=== PATIENT | female | born 1980 | race Hispanic/Latino ===

== ENCOUNTER 2019-05-11 00:14 | Inpatient (IN) | payer MEDICARE ==
[2019-05-11] MEDS ORDERED: ZIPRASIDONE MESYLATE 20 MG VIAL IM ONE ×2 (00:33→00:37)
[2019-05-11] MEDS ORDERED: LORazepam 2 MG/ML VIAL ONE (00:35)
[2019-05-11] MEDS ORDERED: LORazepam 2 MG/ML VIAL IV ONE (00:37)
[2019-05-11] MEDS ORDERED: THIAMINE 100 MG, FOLIC ACID 1 MG, MULTIPLE VITAMIN INJ, ADULT 10 ML in SODIUM CHLORIDE ... IV ONE (00:41)
[2019-05-11] MEDS ORDERED: TETANUS,DIPH,PERTUSS(ACELL) VACCINE 0.5 ML SYRINGE IM ONE (01:08)
[2019-05-11 01:10] LABS: INR 1.16 (0.87-1.13)
--- NOTE | 2019-05-11 01:10 | Emergency Department Report ---
ED Psych HPI - General Chief Complaint: Fall Stated Complaint: FALL/COMBATIVE Time Seen by Provider: 05/11/19 00:36 Source: patient (unable to proved hx), RN/MD (Andres notes reviwed), EMS Mode of arrival: Stretcher Limitations: Altered Mental Status - History of Present Illness Initial Comments: 39-year-old female with a past medical history of mood disorder, psychosis, diabetes, hypothyroidism, etoh dependance, presents from [facility] with [facility] with acute psychosis, hallucinations, agitation, and combative behavior. As per patient's paperwork patient has a 1013 signed on May 08 for hallucinations and acute psychosis. Labs obtained from May 08 (performed at [facility]) included with transport paperwork revealed a negative urine test and patient had an alcohol level of 70. CIWA protocol was started on May 09 and patient received Tranxene 15 mg 4 times today with last dose at 9 PM. Patient fell at [facility] fall was unwithness and presents with lac to posterior scalp. Tetanus status unknown. Patient was combative with staff at [facility] and received IM Haldol 5 mg , Ativan 2 mg IM, and Benadryl 50 mg IM at 9pm. Patient presents to the ER psychotic, rambling and will not answer questions, hallucinating, and requiring multiple providers to provide physical restraints. Geodon 20mg IM an Ativan 1 mg IV ordered. Behavior health sitter showed me a text from Andres nurse stating pt's mom reports no previous hx of psychosis. Pt has had a ciwa score of 16 at 9:41 am and 21:00 05/09 as per Andres chart. at 4:15 am I spoke to Andres RN. he states pt did have some mild intermitten t psychosis upon intake yesterday however, her symptoms worsened throughout the day and were uncontrolled with meds. He also states that patient has some chronic bladder issues and self caths twice a day. He also states that patient's fall was unwitnessed. They were unclear if patient fell or had a seizure. RN was informed that pt was going to be admitted. They say they are willing to accept her back once her condition improves. - Related Data Home Medications Medication Instructions Recorded Confirmed Last Taken ALPRAZolam [Xanax TAB] 1 tab PO PRN PRN 01/26/14 01/27/1414 08:00 Aspirin/Caffeine [Bc Arthritis 1 pack PO PRN PRN 01/26/14 01/26/14 01/25/14 Powder Packet] Dextroamphetamine/Amphetamine 1 tab PO BID 01/26/14 01/27/14 01/27/14 07:00 [Adderall] Levothyroxine [Synthroid] 1 tab PO DAILY 01/26/14 01/27/14 01/27/14 06:00 Lovastatin [Altoprev] 20 mg PO DAILY 01/26/14 01/27/14 01/25/14 08:00 Methadone HCl 1 tab PO 4XD PRN 01/26/14 01/27/14 01/27/14 08:00 Oxycodone HCl/Acetaminophen 1 tab PO PRN PRN 01/26/14 01/27/14 01/27/14 06:00 [Oxycodone-Acetaminophen 10-325] Allergies Allergy/AdvReac Type Severity Reaction Status Date / Time promethazine [From Phenergan] Allergy Unknown Verified 05/11/19 01:26 ED Review of Systems ROS: Stated complaint: FALL/COMBATIVE Other details as noted in HPI Comment: Unobtainable due to pts medical conditions ED Past Medical Hx - Past Medical History Previous Medical History?: Yes Hx Hypertension: Yes Hx Diabetes: Yes Hx GERD: Yes (MILD) Hx Liver Disease: Yes (fatty liver) Hx Asthma: Yes (CHILDHOOD ONLY/SEASONAL) Additional medical history: Drug abuse, hypothyroidism - Surgical History Past Surgical History?: Yes Hx Appendectomy: Yes Additional Surgical History: Tonsillectomy, T10-T11 fusion, C3 neck fusion - Social History Smoking Status: Unknown if ever smoked Substance Use Type: Alcohol, Other - Medications Home Medications: Home Medications Medication Instructions Recorded Confirmed Last Taken Type ALPRAZolam [Xanax TAB] 1 tab PO PRN PRN 01/26/14 01/27/14 01/26/14 08:00 History Aspirin/Caffeine [Bc Arthritis 1 pack PO PRN PRN 01/26/14 01/26/14 01/25/14 History Powder Packet] Dextroamphetamine/Amphetamine 1 tab PO BID 01/26/14 01/27/14 01/27/14 07:00 History [Adderall] Levothyroxine [Synthroid] 1 tab PO DAILY 01/26/14 01/27/14 01/27/14 06:00 History Lovastatin [Altoprev] 20 mg PO DAILY 01/26/14 01/27/14 01/25/14 08:00 History Methadone HCl 1 tab PO 4XD PRN 01/26/14 01/27/14 01/27/14 08:00 History Oxycodone HCl/Acetaminophen 1 tab PO PRN PRN 01/26/14 01/27/14 01/27/14 06:00 History [Oxycodone-Acetaminophen 10-325] ED Physical Exam - General Limitations: Other - Other Other exam information: General: Distress, combative Head: 2 cm laceration to posterior scalp Eyes: normal appearance ENT: Moist mucous membranes Neck: Normal appearance, no midline tenderness Chest: Clear to auscultation bilaterally CV: tachycardic regular rhythm Abdomen: Soft, normal bowel sounds, nontender, nondistended, no rebound or guarding Back: Normal inspection Extremity: Normal inspection, full range of motion Neuro: Alert but not answering any direct questions or following commands, speech clear, no facial asymmetry, 5/5 upper and lower extremity strength, sensation grossly intact Psych: Altered, combative, psychotic, delusional Skin: No rash ED Course Vital Signs 05/11/19 05/11/19 05/11/19 00:20 00:30 00:46 Temperature Pulse Rate 131 H 114 H Respiratory 22 20 Rate Blood Pressure 132/107 O2 Sat by Pulse 79 L 96 Oximetry 05/11/19 05/11/19 05/11/19 01:00 01:16 01:30 Temperature Pulse Rate 110 H 104 H 99 H Respiratory 22 22 18 Rate Blood Pressure 111/64 111/64 106/60 O2 Sat by Pulse 96 97 99 Oximetry 05/11/19 05/11/19 05/11/19 01:46 02:00 02:16 Temperature 98.1 F Pulse Rate 98 H 96 H 94 H Respiratory 20 20 17 Rate Blood Pressure 99/60 115/81 115/81 O2 Sat by Pulse 100 99 100 Oximetry 05/11/19 05/11/19 05/11/19 03:18 03:30 04:00 Temperature Pulse Rate 95 H 95 H 94 H Respiratory 19 17 22 Rate Blood Pressure 100/72 O2 Sat by Pulse 96 96 97 Oximetry - Reevaluation(s) Reevaluation #1: 05/11/19 03:09 sat remained >95% during ed stay, pulse ox of 79 is an error 05/11/19 03:12 tachycardia improved with sedation (geodon and iv ativan) - Laceration /Wound Repair Head Wound Location: head (Posterior scalp) Wound Length (cm): 2 Wound's Depth, Shape: linear Irrigated w/ Saline (ccs): 50 Betadine Prep?: Yes Number of Sutures: 3 ([place]) Layer Closure?: No ED Medical Decision Making - Lab Data Result diagrams: 05/11/19 01:02 05/11/19 01:02 Lab Results 05/11/19 05/11/19 05/11/19 Range/Units 00:44 01:02 01:02 WBC 6.4 (4.5-11.0) K/mm3 RBC 3.43 L (3.65-5.03) M/mm3 Hgb 10.5 (10.1-14.3) gm/dl Hct 31.1 (30.3-42.9) % MCV 91 (79-97) fl MCH 31 (28-32) pg MCHC 34 (30-34) % RDW 19.2 H (13.2-15.2) % Plt Count 181 (140-440) K/mm3 Lymph % (Auto) 8.0 L (13.4-35.0) % [place] % (Auto) 6.3 (0.0-7.3) % Eos % (Auto) 0.3 (0.0-4.3) % Baso % (Auto) 0.4 (0.0-1.8) % Lymph # 0.5 L (1.2-5.4) K/mm3 [place] # 0.4 (0.0-0.8) K/mm3 Eos # 0.0 (0.0-0.4) K/mm3 Baso # 0.0 (0.0-0.1) K/mm3 Seg Neutrophils % 85.0 H (40.0-70.0) % Seg Neutrophils # 5.4 (1.8-7.7) K/mm3 PT 15.0 H (12.2-14.9) Sec. INR 1.16 H (0.87-1.13) APTT 31.0 (24.2-36.6) Sec. Sodium 135 L (137-145) mmol/L Potassium 3.4 L (3.6-5.0) mmol/L Chloride 98.4 (98-107) mmol/L Carbon Dioxide 25 (22-30) mmol/L Anion Gap 15 mmol/L BUN 11 (7-17) mg/dL Creatinine 0.6 L (0.7-1.2) mg/dL Estimated GFR > 60 ml/min BUN/Creatinine Ratio 18 % Glucose 145 H (65-100) mg/dL POC Glucose (70-105) Calcium 8.5 (8.4-10.2) mg/dL Magnesium (1.7-2.3) mg/dL Total Bilirubin 0.70 (0.1-1.2) mg/dL AST 34 (5-40) units/L ALT 18 (7-56) units/L Alkaline Phosphatase 51 (35-129) units/L Total Creatine Kinase 629 H (30-135) units/L Total Protein 6.1 L (6.3-8.2) g/dL Albumin 3.6 L (3.9-5) g/dL Albumin/Globulin Ratio 1.4 % TSH (0.270-4.200) mlU/mL Free T4 (0.76-1.46) ng/dL HCG, Qual (Negative) Urine Color (Yellow) Urine Turbidity (Clear) Urine pH (5.0-7.0) Ur Specific [place] (1.003-1.030) Urine Protein (Negative) mg/dL Urine Glucose (UA) (Negative) mg/dL Urine Ketones (Negative) mg/dL Urine Blood (Negative) Urine Nitrite (Negative) Urine Bilirubin (Negative) Urine Urobilinogen (<2.0) mg/dL Ur Leukocyte Esterase (Negative) Urine WBC (Auto) (0.0-6.0) /HPF Urine RBC (Auto) (0.0-6.0) /HPF U Epithel Cells (Auto) (0-13.0) /HPF Urine Mucus /HPF Salicylates (2.8-20.0) mg/dL Urine Opiates Screen Urine Methadone Screen Acetaminophen (10.0-30.0) ug/mL Ur Barbiturates Screen Ur Phencyclidine Scrn Ur Amphetamines Screen U Benzodiazepines Scrn Urine Cocaine Screen U Marijuana (THC) Screen Drugs of Abuse Note Plasma/Serum Alcohol (0-0.07) % 05/11/19 05/11/19 05/11/19 Range/Units 01:02 01:02 01:02 WBC (4.5-11.0) K/mm3 RBC (3.65-5.03) M/mm3 Hgb (10.1-14.3) gm/dl Hct (30.3-42.9) % MCV (79-97) fl MCH (28-32) pg MCHC (30-34) % RDW (13.2-15.2) % Plt Count (140-440) K/mm3 Lymph % (Auto) (13.4-35.0) % [place] % (Auto) (0.0-7.3) % Eos % (Auto) (0.0-4.3) % Baso % (Auto) (0.0-1.8) % Lymph # (1.2-5.4) K/mm3 [place] # (0.0-0.8) K/mm3 Eos # (0.0-0.4) K/mm3 Baso # (0.0-0.1) K/mm3 Seg Neutrophils % (40.0-70.0) % Seg Neutrophils # (1.8-7.7) K/mm3 PT (12.2-14.9) Sec. INR (0.87-1.13) APTT (24.2-36.6) Sec. Sodium (137-145) mmol/L Potassium (3.6-5.0) mmol/L Chloride (98-107) mmol/L Carbon Dioxide (22-30) mmol/L Anion Gap mmol/L BUN (7-17) mg/dL Creatinine (0.7-1.2) mg/dL Estimated GFR ml/min BUN/Creatinine Ratio % Glucose (65-100) mg/dL POC Glucose (70-105) Calcium (8.4-10.2) mg/dL Magnesium (1.7-2.3) mg/dL Total Bilirubin (0.1-1.2) mg/dL AST (5-40) units/L ALT (7-56) units/L Alkaline Phosphatase (35-129) units/L Total Creatine Kinase (30-135) units/L Total Protein (6.3-8.2) g/dL Albumin (3.9-5) g/dL Albumin/Globulin Ratio % TSH (0.270-4.200) mlU/mL Free T4 (0.76-1.46) ng/dL HCG, Qual (Negative) Urine Color (Yellow) Urine Turbidity (Clear) Urine pH (5.0-7.0) Ur Specific [place] (1.003-1.030) Urine Protein (Negative) mg/dL Urine Glucose (UA) (Negative) mg/dL Urine Ketones (Negative) mg/dL Urine Blood (Negative) Urine Nitrite (Negative) Urine Bilirubin (Negative) Urine Urobilinogen (<2.0) mg/dL Ur Leukocyte Esterase (Negative) Urine WBC (Auto) (0.0-6.0) /HPF Urine RBC (Auto) (0.0-6.0) /HPF U Epithel Cells (Auto) (0-13.0) /HPF Urine Mucus /HPF Salicylates < 0.3 L (2.8-20.0) mg/dL Urine Opiates Screen Urine Methadone Screen Acetaminophen < 5.0 L (10.0-30.0) ug/mL Ur Barbiturates Screen Ur Phencyclidine Scrn Ur Amphetamines Screen U Benzodiazepines Scrn Urine Cocaine Screen U Marijuana (THC) Screen Drugs of Abuse Note Plasma/Serum Alcohol < 0.01 (0-0.07) % 05/11/19 05/11/19 05/11/19 Range/Units 01:02 01:02 01:08 WBC (4.5-11.0) K/mm3 RBC (3.65-5.03) M/mm3 Hgb (10.1-14.3) gm/dl Hct (30.3-42.9) % MCV (79-97) fl MCH (28-32) pg MCHC (30-34) % RDW (13.2-15.2) % Plt Count (140-440) K/mm3 Lymph % (Auto) (13.4-35.0) % [place] % (Auto) (0.0-7.3) % Eos % (Auto) (0.0-4.3) % Baso % (Auto) (0.0-1.8) % Lymph # (1.2-5.4) K/mm3 [place] # (0.0-0.8) K/mm3 Eos # (0.0-0.4) K/mm3 Baso # (0.0-0.1) K/mm3 Seg Neutrophils % (40.0-70.0) % Seg Neutrophils # (1.8-7.7) K/mm3 PT (12.2-14.9) Sec. INR (0.87-1.13) APTT (24.2-36.6) Sec. Sodium (137-145) mmol/L Potassium (3.6-5.0) mmol/L Chloride (98-107) mmol/L Carbon Dioxide (22-30) mmol/L Anion Gap mmol/L BUN (7-17) mg/dL Creatinine (0.7-1.2) mg/dL Estimated GFR ml/min BUN/Creatinine Ratio % Glucose (65-100) mg/dL POC Glucose (70-105) Calcium (8.4-10.2) mg/dL Magnesium 1.20 L (1.7-2.3) mg/dL Total Bilirubin (0.1-1.2) mg/dL AST (5-40) units/L ALT (7-56) units/L Alkaline Phosphatase (35-129) units/L Total Creatine Kinase (30-135) units/L Total Protein (6.3-8.2) g/dL Albumin (3.9-5) g/dL Albumin/Globulin Ratio % TSH (0.270-4.200) mlU/mL Free T4 (0.76-1.46) ng/dL HCG, Qual Negative (Negative) Urine Color [place] (Yellow) Urine Turbidity Clear (Clear) Urine pH 6.0 (5.0-7.0) Ur Specific [place] 1.029 (1.003-1.030) Urine Protein 30 mg/dl (Negative) mg/dL Urine Glucose (UA) Neg (Negative) mg/dL Urine Ketones Tr (Negative) mg/dL Urine Blood Neg (Negative) Urine Nitrite Neg (Negative) Urine Bilirubin Neg (Negative) Urine Urobilinogen 2.0 (<2.0) mg/dL Ur Leukocyte Esterase Tr (Negative) Urine WBC (Auto) 2.0 (0.0-6.0) /HPF Urine RBC (Auto) 5.0 (0.0-6.0) /HPF U Epithel Cells (Auto) 1.0 (0-13.0) /HPF Urine Mucus 2+ /HPF Salicylates (2.8-20.0) mg/dL Urine Opiates Screen Urine Methadone Screen Acetaminophen (10.0-30.0) ug/mL Ur Barbiturates Screen Ur Phencyclidine Scrn Ur Amphetamines Screen U Benzodiazepines Scrn Urine Cocaine Screen U Marijuana (THC) Screen Drugs of Abuse Note Plasma/Serum Alcohol (0-0.07) % 05/11/19 05/11/19 05/11/19 Range/Units 01:08 01:39 Unknown WBC (4.5-11.0) K/mm3 RBC (3.65-5.03) M/mm3 Hgb (10.1-14.3) gm/dl Hct (30.3-42.9) % MCV (79-97) fl MCH (28-32) pg MCHC (30-34) % RDW (13.2-15.2) % Plt Count (140-440) K/mm3 Lymph % (Auto) (13.4-35.0) % [place] % (Auto) (0.0-7.3) % Eos % (Auto) (0.0-4.3) % Baso % (Auto) (0.0-1.8) % Lymph # (1.2-5.4) K/mm3 [place] # (0.0-0.8) K/mm3 Eos # (0.0-0.4) K/mm3 Baso # (0.0-0.1) K/mm3 Seg Neutrophils % (40.0-70.0) % Seg Neutrophils # (1.8-7.7) K/mm3 PT (12.2-14.9) Sec. INR (0.87-1.13) APTT (24.2-36.6) Sec. Sodium (137-145) mmol/L Potassium (3.6-5.0) mmol/L Chloride (98-107) mmol/L Carbon Dioxide (22-30) mmol/L Anion Gap mmol/L BUN (7-17) mg/dL Creatinine (0.7-1.2) mg/dL Estimated GFR ml/min BUN/Creatinine Ratio % Glucose (65-100) mg/dL POC Glucose 142 H (70-105) Calcium (8.4-10.2) mg/dL Magnesium (1.7-2.3) mg/dL Total Bilirubin (0.1-1.2) mg/dL AST (5-40) units/L ALT (7-56) units/L Alkaline Phosphatase (35-129) units/L Total Creatine Kinase (30-135) units/L Total Protein (6.3-8.2) g/dL Albumin (3.9-5) g/dL Albumin/Globulin Ratio % TSH 7.120 H (0.270-4.200) mlU/mL Free T4 1.24 (0.76-1.46) ng/dL HCG, Qual (Negative) Urine Color (Yellow) Urine Turbidity (Clear) Urine pH (5.0-7.0) Ur Specific [place] (1.003-1.030) Urine Protein (Negative) mg/dL Urine Glucose (UA) (Negative) mg/dL Urine Ketones (Negative) mg/dL Urine Blood (Negative) Urine Nitrite (Negative) Urine Bilirubin (Negative) Urine Urobilinogen (<2.0) mg/dL Ur Leukocyte Esterase (Negative) Urine WBC (Auto) (0.0-6.0) /HPF Urine RBC (Auto) (0.0-6.0) /HPF U Epithel Cells (Auto) (0-13.0) /HPF Urine Mucus /HPF Salicylates (2.8-20.0) mg/dL Urine Opiates Screen Presumptive negative Urine Methadone Screen Presumptive negative Acetaminophen (10.0-30.0) ug/mL Ur Barbiturates Screen Presumptive negative Ur Phencyclidine Scrn Presumptive negative Ur Amphetamines Screen Presumptive positive U Benzodiazepines Scrn Presumptive positive Urine Cocaine Screen Presumptive negative U Marijuana (THC) Screen Presumptive positive Drugs of Abuse Note Disclamer Plasma/Serum Alcohol (0-0.07) % - Radiology Data Radiology results: report reviewed CT HEAD/BRAIN WO CON INDICATION / CLINICAL INFORMATION: Pt had a fall with head injury, posterior laceration, Psychosis!!. TECHNIQUE: All CT scans at this location are performed using CT dose reduction for ALARA by means of automated exposure control. COMPARISON: None available. FINDINGS: The study is suboptimal due to motion artifact. There is a right posterior frontal scalp laceration. The ventricular system is normal in size and configuration. No focal lesion or mass effect is seen. There is no evidence of intracranial hemorrhage or major vessel occlusion. The calvarium is intact. The visualized paranasal sinuses and mastoid air cells are near. IMPRESSION: No acute intracranial abnormality. CT CERVICAL SPINE WO CON INDICATION / CLINICAL INFORMATION: Pt had a fall with neck injury, Psychosis!!. TECHNIQUE: All CT scans at this location are performed using CT dose reduction for ALARA by means of automated exposure control. COMPARISON: None available. FINDINGS: There are surgical changes involving the posterior elements of C1 and C2. A metallic screw traverses the right lateral mass of C2. There is an os odontoideum. Mild degenerative disc disease is present at C5-C6. The prevertebral soft tissues are normal. There is no evidence of acute fracture or subluxation. I see no evidence of a focal disc herniation or epidural hematoma. There is mild scarring in both lung apices. IMPRESSION: Surgical and developmental changes at C1 and C2. No acute abnormality. - Medical Decision Making UDS + for amphetamines benzos and marijuana. pt receiving benzos at [facility]. I do not seen any adhd meds listed on APR therefore amphatmine abuse is likely as well. Pt sedated and resting after geodon 20mg IM and ativan 1 mg IV IV Mag and IV potassium ordered to correct mild electrolyte imbalances. Banana bag provided ct head/c spine without acute findings. pt's scalp lac was repaired with yvrose. tetanus provided As per RN from [facility] mother stated patient does not have history of psychosis. I suspect that patient is having alcohol withdrawal delirium. Psychosis may also be amphetamine induced as well however psychosis has worsened throughout the day and patient has not had had any known access to amphetamines while at [facility]. She has failed inpatient [facility] treatment with oral benzos and rescue antipsychotic and IM benzos and required ED stabilization. C ase was discussed with hospitalist who has agreed to admit patient for alcohol withdrawal delirium/psychosis. Patient is sedated at time of disposition. New 1013 form signed. [facility] protocol ordered [place] ordered since pt typically self caths due to chronic bladder issue and she is currently sedated - Differential Diagnosis drug abuse, new onset psychosis, etoh withdrawal delerium Critical Care Time: No Critical care attestation.: If time is entered above; I have spent that time in minutes in the direct care of this critically ill patient, excluding procedure time. ED Disposition Clinical Impression: Psychosis, Alcohol dependence, Alcohol withdrawal delirium, Occipital scalp laceration, Medical clearance for psychiatric admission, Hypomagnesemia, Hypokalemia, Amphetamine abuse, Chronic retention of urine, Diabetes Disposition: [id number] OP ADMIT IP TO THIS HOSP Is pt being admited?: Yes Condition: Stable Additional Instructions: Yvrose to scalp should be removed in 7 to 10 days. Time of Disposition: 04:23 (Dr Lovell/hospitalist)
[2019-05-11 01:13] LABS: Basophils % (Auto) 0.4 % (0.0-1.8); Eosinophils % (Auto) 0.3 % (0.0-4.3); Hematocrit 31.1 % (30.3-42.9); Hemoglobin 10.5 gm/dl (10.1-14.3); Lymphocytes # (Auto) 0.5 K/mm3 (1.2-5.4); Mean Corpuscular HGB Conc 34 % (30-34); Mean Corpuscular Volume 91 fl (79-97); Monocytes # (Auto) 0.4 K/mm3 (0.0-0.8); Monocytes % (Auto) 6.3 % (0.0-7.3); Platelet Count 181 K/mm3 (140-440); Red Blood Count 3.43 M/mm3 (3.65-5.03); Red Cell Distribution Width 19.2 % (13.2-15.2)
[2019-05-11 01:35] LABS: Bilirubin,Urine NEG (Negative); Blood,Urine NEG (Negative); Color,Urine Amber (Yellow); Mucus,Urine 2+ /HPF
[2019-05-11 01:37] LABS: Alanine Aminotransferase 18 units/L (7-56); Albumin 3.6 g/dL (3.9-5); BUN/Creatinine Ratio 18; Blood Urea Nitrogen 11 mg/dL (7-17); Calcium 8.5 mg/dL (8.4-10.2); Hemolysis Index 17
[2019-05-11] MEDS ORDERED: MAGNESIUM SULFATE 1 GM in SODIUM CHLORIDE 0.9% 50 ML IV ONE (01:38)
[2019-05-11 01:39] LABS: Cocaine Screen,Urine PRESUMPTIVE NEGATIVE; Methadone Screen,Urine PRESUMPTIVE NEGATIVE; Opiate Screen,Urine PRESUMPTIVE NEGATIVE
[2019-05-11 01:54] LABS: Free T4 (Free Thyroxine) 1.24 ng/dL (0.76-1.46)
[2019-05-11 02:12] LABS: Amphetamine Screen,Urine PRESUMPTIVE POSITIVE; Benzodiazepines Screen,Urine PRESUMPTIVE POSITIVE; Cannabinoid Screen,Urine PRESUMPTIVE POSITIVE
[2019-05-11] MEDS ORDERED: LORazepam 2 MG/ML VIAL IV PRN ×3 (03:10)
--- NOTE | 2019-05-11 03:15 | Cat Scan Report ---
CT HEAD/BRAIN WO CON INDICATION / CLINICAL INFORMATION: Pt had a fall with head injury, posterior laceration, Psychosis!!. TECHNIQUE: All CT scans at this location are performed using CT dose reduction for ALARA by means of automated e xposure control. COMPARISON: None available. FINDINGS: The study is suboptimal due to motion artifact. There is a right posterior frontal scalp laceration. The ventricular system is normal in size and configuration. No focal lesion or mass effect is seen. T here is no evidence of intracranial hemorrhage or major vessel occlusion. The calvarium is intact. The visualized paranasal sinuses and mastoid air cells are near. IMPRESSION: No acute intracranial abnormality. Signer Name: Aly Obregon MD Signed: 05/11/2019 3:11 AM Workstation Name: [id number]
--- NOTE | 2019-05-11 03:19 | Cat Scan Report ---
CT CERVICAL SPINE WO CON INDICATION / CLINICAL INFORMATION: Pt had a fall with neck injury, Psychosis!!. TECHNIQUE: All CT scans at this location are performed using CT dose reduction for ALARA by means of automated e xposure control. COMPARISON: None available. FINDINGS: There are surgical changes involving the posterior elements of C1 and C2. A metallic screw traverses the right lateral mass of C2. There is an os odontoideum. Mild degenerative disc disease is present a t C5-C6. The prevertebral soft tissues are normal. There is no evidence of acute fracture or subluxation. I se e no evidence of a focal disc herniation or epidural hematoma. There is mild scarring in both lung ap ices. IMPRESSION: Surgical and developmental changes at C1 and C2. No acute abnormality. Signer Name: Aly Obregon MD Signed: 05/11/2019 3:15 AM Workstation Name: [id number]
[2019-05-11] MEDS: POTASSIUM CHLORIDE 10 MEQ 10 MEQ/100 ML BAG IV SCH ×2 (05:10→05:11)
[2019-05-11] MEDS ORDERED: ACETAMINOPHEN 325 MG TAB PO PRN (06:01)
[2019-05-11] MEDS ORDERED: ONDANSETRON 4 MG/2 ML INJ IV PRN (06:01)
--- NOTE | 2019-05-11 06:05 | History and Physical Report ---
History of Present Illness History of present illness: 39-year-old woman with a history of diabetes, hypothyroidism, alcohol abuse, mood disorder was sent over from [place] for evaluation. Patient is status post fall at [place] with laceration at the back of her head, and she was sent here for further evaluation, in the ER she has been very combative in the emergency room, she was given Geodon 20, Ativan 1 mg, patient is now sedated. She also was combative overnight rewards and was also given sedatives. She was evaluated [facility] on May 08 for psychosis, alcohol level was 70. Patient will be admitted for alcohol delirium tremors PAST MEDICAL HISTORY: diabetes, hypothyroidism, alcohol abuse, mood disorder PAST SURGICAL HISTORY: Tonsil, neck, appendectomy SOCIAL HISTORY: + alcohol, unknown tobacco, drugs FAMILY HISTORY: Unknown Medications and Allergies Allergies Allergy/AdvReac Type Severity Reaction Status Date / Time promethazine [From Phenergan] Allergy Unknown Verified 05/11/19 01:26 Home Medications Medication Instructions Recorded Confirmed Last Taken Type ALPRAZolam [Xanax TAB] 1 tab PO PRN PRN 01/26/14 01/27/14 01/26/14 08:00 History Aspirin/Caffeine [Bc Arthritis 1 pack PO PRN PRN 01/26/14 01/26/14 01/25/14 History Powder Packet] Dextroamphetamine/Amphetamine 1 tab PO BID 01/26/14 01/27/14 01/27/14 07:00 History [Adderall] Levothyroxine [Synthroid] 1 tab PO DAILY 01/26/14 01/27/14 01/27/14 06:00 History Lovastatin [Altoprev] 20 mg PO DAILY 01/26/14 01/27/14 01/25/14 08:00 History Methadone HCl 1 tab PO 4XD PRN 01/26/14 01/27/14 01/27/14 08:00 History Oxycodone HCl/Acetaminophen 1 tab PO PRN PRN 01/26/14 01/27/14 01/27/14 06:00 History [Oxycodone-Acetaminophen 10-325] Active Meds: Active Medications Acetaminophen (Tylenol) 650 mg PO Q4H PRN PRN Reason: Pain MILD(1-3)/Fever >100.5/VALENTINO Dextrose/Sodium Chloride (D5/0.45ns) 1,000 mls @ 75 mls/hr IV DIRECT PRASHANTH Lorazepam (Ativan) 2 mg IV Q1HR PRN PRN Reason: CIWA-Ar 8-15 Lorazepam (Ativan) 4 mg IV Q1HR PRN PRN Reason: CIWA-Ar 16-25 Lorazepam (Ativan) 4 mg IV Q15MIN PRN PRN Reason: CIWA-Ar >25 Ondansetron HCl (Zofran) 4 mg IV Q8H PRN PRN Reason: Nausea And Vomiting Sodium Chloride (Sodium Chloride Flush Syringe 10 Ml) 10 ml IV BID PRASHANTH Sodium Chloride (Sodium Chloride Flush Syringe 10 Ml) 10 ml IV PRN PRN PRN Reason: LINE FLUSH Exam - Physical Exam Narrative exam: Gen. appearance: Patient lying in bed, no apparent distress HEENT: Normocephalic, atraumatic, pupils equally round and reactive to light, unable to do extraocular movement , and no sclericterus,. No JVD or thyromegaly or nodule,neck supple, no carotid bruit ,mucous membranes moist, unable to examine oral cavity Heart: S1, S2, regular rate and rhythm Lungs: Clear bilaterally, breathing comfortable Abdomen: Positive bowel sounds, nontender, nondistended, no organomegaly Extremity: no edema, cyanosis, clubbing Skin: No rash, nodules, warm, dry Neuro: sedated - Constitutional Vitals: Temp Pulse Resp BP Pulse Ox 98.1 F 96 H 21 100/72 96 05/11/19 02:16 05/11/19 05:30 05/11/19 05:30 05/11/19 05:30 05/11/19 05:30 Results - Labs CBC & Chem 7: 05/11/19 01:02 05/11/19 01:02 Labs: Abnormal lab results 05/11/19 05/11/19 05/11/19 Range/Units 00:44 01:02 01:02 RBC 3.43 L (3.65-5.03) M/mm3 RDW 19.2 H (13.2-15.2) % Lymph % (Auto) 8.0 L (13.4-35.0) % Lymph # 0.5 L (1.2-5.4) K/mm3 Seg Neutrophils % 85.0 H (40.0-70.0) % PT 15.0 H (12.2-14.9) Sec. INR 1.16 H (0.87-1.13) Sodium 135 L (137-145) mmol/L Potassium 3.4 L (3.6-5.0) mmol/L Creatinine 0.6 L (0.7-1.2) mg/dL Glucose 145 H (65-100) mg/dL POC Glucose (70-105) Magnesium (1.7-2.3) mg/dL Total Creatine Kinase 629 H (30-135) units/L Total Protein 6.1 L (6.3-8.2) g/dL Albumin 3.6 L (3.9-5) g/dL TSH (0.270-4.200) mlU/mL Salicylates (2.8-20.0) mg/dL Acetaminophen (10.0-30.0) ug/mL 05/11/19 05/11/19 05/11/19 Range/Units 01:02 01:02 01:02 RBC (3.65-5.03) M/mm3 RDW (13.2-15.2) % Lymph % (Auto) (13.4-35.0) % Lymph # (1.2-5.4) K/mm3 Seg Neutrophils % (40.0-70.0) % PT (12.2-14.9) Sec. INR (0.87-1.13) Sodium (137-145) mmol/L Potassium (3.6-5.0) mmol/L Creatinine (0.7-1.2) mg/dL Glucose (65-100) mg/dL POC Glucose (70-105) Magnesium 1.20 L (1.7-2.3) mg/dL Total Creatine Kinase (30-135) units/L Total Protein (6.3-8.2) g/dL Albumin (3.9-5) g/dL TSH (0.270-4.200) mlU/mL Salicylates < 0.3 L (2.8-20.0) mg/dL Acetaminophen < 5.0 L (10.0-30.0) ug/mL 05/11/19 05/11/19 Range/Units 01:39 Unknown RBC (3.65-5.03) M/mm3 RDW (13.2-15.2) % Lymph % (Auto) (13.4-35.0) % Lymph # (1.2-5.4) K/mm3 Seg Neutrophils % (40.0-70.0) % PT (12.2-14.9) Sec. INR (0.87-1.13) Sodium (137-145) mmol/L Potassium (3.6-5.0) mmol/L Creatinine (0.7-1.2) mg/dL Glucose (65-100) mg/dL POC Glucose 142 H (70-105) Magnesium (1.7-2.3) mg/dL Total Creatine Kinase (30-135) units/L Total Protein (6.3-8.2) g/dL Albumin (3.9-5) g/dL TSH 7.120 H (0.270-4.200) mlU/mL Salicylates (2.8-20.0) mg/dL Acetaminophen (10.0-30.0) ug/mL - Imaging and Cardiology CT Scan - head: report reviewed Assessment and Plan Assessment Alcohol withdrawal with DTs Continue CIWA protocol with IV Ativan Start IV fluids Diabetes Check fingersticks, hold insulin for now until she starts eating Hypothyroidism Continue outpatient medications mood disorder DVT prophylaxis
[2019-05-11] MEDS ORDERED: DEXTROSE 50% IN WATER (25GM) 50 ML SYRINGE IV PRN (06:28)
[2019-05-11] MEDS ORDERED: D5W/0.45% NACL 1,000 ML IV SCH (07:00)
[2019-05-11] MEDS ORDERED: POTASSIUM CHLORIDE 10 MEQ 10 MEQ/100 ML BAG IV SCH ×2 (07:00→13:00)
[2019-05-11 08:28] LABS: Basophils % (Auto) 0.3 % (0.0-1.8); Eosinophils % (Auto) 0.4 % (0.0-4.3); Hematocrit 29.8 % (30.3-42.9); Hemoglobin 10.1 gm/dl (10.1-14.3); Lymphocytes % (Auto) 17.6 % (13.4-35.0); Mean Corpuscular HGB Conc 34 % (30-34); Mean Corpuscular Volume 91 fl (79-97); Monocytes # (Auto) 0.6 K/mm3 (0.0-0.8); Monocytes % (Auto) 9.9 % (0.0-7.3); Platelet Count 176 K/mm3 (140-440); Red Blood Count 3.29 M/mm3 (3.65-5.03); Red Cell Distribution Width 19.1 % (13.2-15.2)
[2019-05-11] MEDS ORDERED: ENOXAPARIN 30 MG/0.3 ML INJ SUB-Q SCH (10:00)
--- NOTE | 2019-05-11 11:22 | Event Note ---
Date: 05/11/19 Patient from [place], admitted for alcohol withdrawal. I have seen and examined her.
[2019-05-11] MEDS: ENOXAPARIN 40 MG/0.4 ML INJ SUB-Q SCH (12:53)
[2019-05-11] MEDS: SODIUM CHLORIDE 0.9% 1000 ML 1,000 ML IV SCH (12:55)
[2019-05-12] MEDS: SODIUM CHLORIDE 0.9% 1000 ML 1,000 ML IV SCH ×2 (01:39→19:28)
[2019-05-12] MEDS ORDERED: MAGNESIUM SULFATE 4 GM/100 ML BAG IV ONE (02:56)
--- NOTE | 2019-05-12 10:58 | Consultation ---
History of Present Illness - Reason for Consult Consult date: 05/12/19 Reason for consult: Psych eval - Chief Complaint Chief complaint: I relapsed - History of Present Psychiatric Illness The patient is a 39-year-old disabled female with history of Alcohol use disorder, MDD, diabetes, hypothyroidism who was transferred from [place] (critical access hospital) for unwitnessed fall. She was agitated, combative, psychotic and required restraints and multiple PRN meds. This morning patient is alert, fully oriented, calm and pleasant. She states that she relapsed and started drinking alcohol heavily after being sober for many months. She states that she was at [place] for alcohol detox; she fell and was transferred here. She denies abusing other substances. Patient denies being depressed or excessively nervous. Patient eats and sleeps well. Patient denies panic attacks, recurrent nightmares or flashbacks. Patient denies symptoms suggestive of OCD or PTSD. Patient denies hallucinations, paranoia, thought interference and no features suggestive of hypomania or geoffrey. She completely denies suicidal or homicidal thoughts. PAST PSYCHIATRIC HISTORY: Diagnoses: Alcohol use disorder, MDD Suicide attempts or Self-harm behavior: denies Prior psychiatric hospitalizations: denies Substance Abuse history:Alcohol Previous psychiatric medications tried: unknown Outpatient treatment: no PAST MEDICAL HISTORY: DM, Hypothyroidism Family Psychiatric History None reported or documented SOCIAL HISTORY Marital Status: Living Arrangements: with mother Employment Status: disabled Access to guns/weapons: Patient denies Education: High School History of Abuse: Patient denies Legal History: Patient denies ROS: Constitutional: Negative for weight loss ENT: Negative for stridor Respiratory: Negative for cough or hemoptysis All other systems reviewed and are negative MENTAL STATUS General Appearance and Behavior: age appropriate, good eye contact, cooperative with questioning and polite Cooperation: Cooperative Psychomotor Behavior: within normal limits Mood: OK Affect and affective range: Congruent with stated mood Thought Process: Fluent/Logical and Goal-directed Thought Content: Within reality Speech: Normal volume and Regular rate and rhythm Intellectual Functioning Average Suicidal Ideation: Denies SI Homicidal Ideation: Denies HI Impulse Control: intact Insight and Judgment: normal insight and judgment Memory: Normal Attention: Normal Orientation: alert and oriented Diagnosis: Alcohol use disorder, severe dependence RECOMMENDATIONS MEDICATIONS: Continue detox protocol Risks, benefits and alternatives of medications discussed with the patient, questions answered and consent obtained from patient. PSYCHOTHERAPY: Supportive psychotherapy provided MEDICAL: Per primary team LAP POLISHER: may discontinue DISPOSITION: Per primary team, no indication for acute inpatient psychiatric hospitalization at this time LEGAL STATUS: Will rescind 1013 FOLLOW-UP: Will sign off. Patient to complete Safety Plan with Health Insurance Agent before discharge. Health Insurance Agent to please give patient resources for out-patient follow-up. Thank you for the consult. Please contact with any questions and/or concerns. Medications and Allergies Allergies Allergy/AdvReac Type Severity Reaction Status Date / Time promethazine [From Phenergan] Allergy Unknown Verified 05/11/19 01:26 Home Medications Medication Instructions Recorded Confirmed Last Taken Type ALPRAZolam [Xanax TAB] 1 tab PO PRN PRN 01/26/14 01/27/14 01/26/14 08:00 History Aspirin/Caffeine [Bc Arthritis 1 pack PO PRN PRN 01/26/14 01/26/14 01/25/14 History Powder Packet] Dextroamphetamine/Amphetamine 1 tab PO BID 01/26/14 01/27/14 01/27/14 07:00 History [Adderall] Levothyroxine [Synthroid] 1 tab PO DAILY 01/26/14 01/27/14 01/27/14 06:00 History Lovastatin [Altoprev] 20 mg PO DAILY 01/26/14 01/27/14 01/25/14 08:00 History Methadone HCl 1 tab PO 4XD PRN 01/26/14 01/27/14 01/27/14 08:00 History Oxycodone HCl/Acetaminophen 1 tab PO PRN PRN 01/26/14 01/27/14 01/27/14 06:00 History [Oxycodone-Acetaminophen 10-325] Active Meds: Active Medications Acetaminophen (Tylenol) 650 mg PO Q4H PRN PRN Reason: Pain MILD(1-3)/Fever >100.5/VALENTINO Dextrose (D50w (25gm) Syringe) 50 ml IV Q30MIN PRN; Protocol PRN Reason: Hypoglycemia Enoxaparin Sodium (Enoxaparin) 40 mg SUB-Q QDAY@1000 PRASHANTH Last Admin: 05/11/19 12:53 Dose: 40 mg Documented by: Sodium Chloride (Nacl 0.9% 1000 Ml) 1,000 mls @ 75 mls/hr IV DIRECT PRASHANTH Last Admin: 05/12/19 01:39 Dose: 75 mls/hr Documented by: Lorazepam (Ativan) 2 mg IV Q1HR PRN PRN Reason: CIWA-Ar 8-15 Lorazepam (Ativan) 4 mg IV Q1HR PRN PRN Reason: CIWA-Ar 16-25 Lorazepam (Ativan) 4 mg IV Q15MIN PRN PRN Reason: CIWA-Ar >25 Ondansetron HCl (Zofran) 4 mg IV Q8H PRN PRN Reason: Nausea And Vomiting Sodium Chloride (Sodium Chloride Flush Syringe 10 Ml) 10 ml IV BID [facility] Last Admin: 05/11/19 12:54 Dose: 10 ml Documented by: Sodium Chloride (Sodium Chloride Flush Syringe 10 Ml) 10 ml IV PRN PRN PRN Reason: LINE FLUSH Mental Status Exam - Vital signs Last Vital Signs Temp 97 F L 05/12/19 08:00 Pulse 97 H 05/12/19 08:00 Resp 16 05/12/19 08:00 BP 143/85 05/12/19 08:00 Pulse Ox 97 05/12/19 08:00 Results Result Diagrams: 05/11/19 07:00 05/11/19 01:02 Abnormal lab results 05/11/19 05/11/19 Range/Units 21:36 22:39 POC Glucose 62 L 124 H (70-105) All other labs normal.
[2019-05-12] MEDS: ENOXAPARIN 40 MG/0.4 ML INJ SUB-Q SCH (11:35)
[2019-05-12 13:35] LABS: BUN/Creatinine Ratio 12; Blood Urea Nitrogen 6 mg/dL (7-17); Calcium 8.1 mg/dL (8.4-10.2); Hemolysis Index 2
--- NOTE | 2019-05-12 15:25 | Progress Note ---
Assessment and Plan Assessment and plan: Alcohol withdrawal with DTs Continue CIWA protocol with IV Ativan Start IV fluids Diabetes Check fingersticks, hold insulin for now until she starts eating Hypothyroidism Continue outpatient medications mood disorder DVT prophylaxis Anticipate d/c in am History Interval history: No new issues Hospitalist Physical - Constitutional Vitals: Temp Pulse Resp BP Pulse Ox 97 F L 97 H 18 143/85 97 05/12/19 08:00 05/12/19 08:00 05/12/19 08:00 05/12/19 08:00 05/12/19 08:00 General appearance: Present: no acute distress, well-nourished - EENT Eyes: Present: PERRL, EOM intact ENT: hearing intact, clear oral mucosa, dentition normal - Neck Neck: Present: supple, normal ROM - Respiratory Respiratory effort: normal Respiratory: bilateral: CTA - Cardiovascular Rhythm: regular Heart Sounds: Present: S1 & S2. Absent: gallop, rub - Extremities Extremities: no ischemia, No edema, Full ROM - Abdominal General gastrointestinal: soft, non-tender, non-distended, normal bowel sounds - Integumentary Integumentary: Present: clear, warm, dry - Neurologic Neurologic: CNII-XII intact, moves all extremities Results - Labs CBC & Chem 7: 05/11/19 07:00 05/12/19 12:37 Labs: Laboratory Last Values WBC 6.0 K/mm3 (4.5-11.0) 05/11/19 07:00 RBC 3.29 M/mm3 (3.65-5.03) L 05/11/19 07:00 Hgb 10.1 gm/dl (10.1-14.3) 05/11/19 07:00 Hct 29.8 % (30.3-42.9) L 05/11/19 07:00 MCV 91 fl (79-97) 05/11/19 07:00 MCH 31 pg (28-32) 05/11/19 07:00 MCHC 34 % (30-34) 05/11/19 07:00 RDW 19.1 % (13.2-15.2) H 05/11/19 07:00 Plt Count 176 K/mm3 (140-440) 05/11/19 07:00 Lymph % (Auto) 17.6 % (13.4-35.0) 03/30/20 07:00 Davison % (Auto) 9.9 % (0.0-7.3) H 05/11/19 07:00 Eos % (Auto) 0.4 % (0.0-4.3) 05/11/19 07:00 Baso % (Auto) 0.3 % (0.0-1.8) 05/11/19 07:00 Lymph # 1.0 K/mm3 (1.2-5.4) L 05/11/19 07:00 Davison # 0.6 K/mm3 (0.0-0.8) 05/11/19 07:00 Eos # 0.0 K/mm3 (0.0-0.4) 05/11/19 07:00 Baso # 0.0 K/mm3 (0.0-0.1) 05/11/19 07:00 Seg Neutrophils % 71.8 % (40.0-70.0) H 05/11/19 07:00 Seg Neutrophils # 4.3 K/mm3 (1.8-7.7) 05/11/19 07:00 PT 15.0 Sec. (12.2-14.9) H 05/11/19 00:44 INR 1.16 (0.87-1.13) H 05/11/19 00:44 APTT 31.0 Sec. (24.2-36.6) 05/11/19 00:44 Sodium 137 mmol/L (137-145) 05/12/19 12:37 Potassium 4.2 mmol/L (3.6-5.0) D 05/12/19 12:37 Chloride 103.4 mmol/L (98-107) 05/12/19 12:37 Carbon Dioxide 24 mmol/L (22-30) 05/12/19 12:37 Anion Gap 14 mmol/L 05/12/19 12:37 BUN 6 mg/dL (7-17) L 05/12/19 12:37 Creatinine 0.5 mg/dL (0.7-1.2) L 05/12/19 12:37 Estimated GFR > 60 ml/min 05/12/19 12:37 BUN/Creatinine Ratio 12 % 05/12/19 12:37 Glucose 128 mg/dL (65-100) H 05/12/19 12:37 POC Glucose 170 (70-105) H 05/12/19 12:07 Calcium 8.1 mg/dL (8.4-10.2) L 05/12/19 12:37 Magnesium 1.60 mg/dL (1.7-2.3) L 05/12/19 12:37 Total Bilirubin 0.70 mg/dL (0.1-1.2) 05/11/19 01:02 AST 34 units/L (5-40) 05/11/19 01:02 ALT 18 units/L (7-56) 05/11/19 01:02 Alkaline Phosphatase 51 units/L (35-129) 05/11/19 01:02 Total Creatine Kinase 629 units/L (30-135) H 05/11/19 01:02 Total Protein 6.1 g/dL (6.3-8.2) L 05/11/19 01:02 Albumin 3.6 g/dL (3.9-5) L 05/11/19 01:02 Albumin/Globulin Ratio 1.4 % 05/11/19 01:02 TSH 7.120 mlU/mL (0.270-4.200) H 05/11/19 Unknown Free T4 1.24 ng/dL (0.76-1.46) 05/11/19 Unknown HCG, Qual Negative (Negative) 05/11/19 01:02 Urine Color Jennifer (Yellow) 05/11/19 01:08 Urine Turbidity Clear (Clear) 05/11/19 01:08 Urine pH 6.0 (5.0-7.0) 05/11/19 01:08 Ur Specific Parker 1.029 (1.003-1.030) 05/11/19 01:08 Urine Protein 30 mg/dl mg/dL (Negative) 05/11/19 01:08 Urine Glucose (UA) Neg mg/dL (Negative) 05/11/19 01:08 Urine Ketones Tr mg/dL (Negative) 05/11/19 01:08 Urine Blood Neg (Negative) 05/11/19 01:08 Urine Nitrite Neg (Negative) 05/11/19 01:08 Urine Bilirubin Neg (Negative) 05/11/19 01:08 Urine Urobilinogen 2.0 mg/dL (<2.0) 05/11/19 01:08 Ur Leukocyte Esterase Tr (Negative) 05/11/19 01:08 Urine WBC (Auto) 2.0 /HPF (0.0-6.0) 05/11/19 01:08 Urine RBC (Auto) 5.0 /HPF (0.0-6.0) 05/11/19 01:08 U Epithel Cells (Auto) 1.0 /HPF (0-13.0) 05/11/19 01:08 Urine Mucus 2+ /HPF 05/11/19 01:08 Salicylates < 0.3 mg/dL (2.8-20.0) L 05/11/19 01:02 Urine Opiates Screen Presumptive negative 05/11/19 01:08 Urine Methadone Screen Presumptive negative 05/11/19 01:08 Acetaminophen < 5.0 ug/mL (10.0-30.0) L 05/11/19 01:02 Ur Barbiturates Screen Presumptive negative 05/11/19 01:08 Ur Phencyclidine Scrn Presumptive negative 05/11/19 01:08 Ur Amphetamines Screen Presumptive positive 05/11/19 01:08 U Benzodiazepines Scrn Presumptive positive 05/11/19 01:08 Urine Cocaine Screen Presumptive negative 05/11/19 01:08 U Marijuana (THC) Screen Presumptive positive 05/11/19 01:08 Drugs of Abuse Note Disclamer 05/11/19 01:08 Plasma/Serum Alcohol < 0.01 % (0-0.07) 05/11/19 01:02 Norris/IV: Voiding Method Indwelling Catheter IV Catheter Type [Right Peripheral IV Forearm] Active Medications - Current Medications Current Medications: Generic Name Dose Route Start Last Admin Trade Name Freq PRN Reason Stop Dose Admin Acetaminophen 650 mg 05/11/19 06:01 Tylenol PO Q4H PRN Pain MILD(1-3)/Fever >100.5/VALENTINO Dextrose 50 ml 05/11/19 06:28 D50w (25gm) Syringe IV Q30MIN PRN Hypoglycemia Protocol Enoxaparin Sodium 40 mg 05/11/19 10:00 05/12/19 11:35 Enoxaparin SUB-Q 40 mg QDAY@1000 PRASHANTH Administration Sodium Chloride 1,000 mls @ 75 mls/hr 05/11/19 06:15 05/12/19 01:39 Nacl 0.9% 1000 Ml IV 75 mls/hr DIRECT PRASHANTH Administration Lorazepam 2 mg 05/11/19 03:10 Ativan IV Q1HR PRN CIWA-Ar 8-15 Lorazepam 4 mg 05/11/19 03:10 Ativan IV Q1HR PRN CIWA-Ar 16-25 Lorazepam 4 mg 05/11/19 03:10 Ativan IV Q15MIN PRN CIWA-Ar >25 Ondansetron HCl 4 mg 05/11/19 06:01 Zofran IV Q8H PRN Nausea And Vomiting Sodium Chloride 10 ml 05/11/19 10:00 05/12/19 11:36 Sodium Chloride Flush Syringe 10 Ml IV 10 ml BID PRASHANTH Administration Sodium Chloride 10 ml 05/11/19 06:01 Sodium Chloride Flush Syringe 10 Ml IV PRN PRN LINE FLUSH Nutrition/Malnutrition Assess - Dietary Evaluation Nutrition/Malnutrition Findings: Nutrition Notes Start: 05/12/19 15:07 Freq: Status: Active Protocol: Document 05/12/19 15:07 JANAY (Rec: 05/12/19 15:11 JANAY [id number] [email or web address]) Nutrition Notes Need for Assessment generated from: orthotics assistant,MST Initial or Follow up Assessment Current Diagnosis Diabetes Other Pertinent Diagnosis s/p fall, EtOH withdrawal with DTs Current Diet Consistent CHO Labs/Tests reviewed Pertinent Medications reviewed Height 5 ft 8 in Weight 72.5 kg [place] Body Weight (kg) 63.63 BMI 24.3 Weight Status Appropriate Subjective/Other Information Pt screened for malnutrition risk. She is from [facility] facility and on CIWA protocol. Burn Absent Trauma Absent Minimum of two criteria No #1 Nutrition Diagnosis Predicted suboptimal energy intake Etiology hx of EtOH dependence As Evidenced by Signs and Symptoms pt admitted for EtOH withdrawal Is patient on ventilator? No Is Patient Ambulatory and/or Out of Bed No REE-([place]-St. Jeor-confined to bed) [phone] Calculation Used for Recommendations [facility] Additional Notes Pro needs 0.8-1g/k-73g/ day Fluid needs 1ml/kcal Nutrition Intervention Change Diet Order: Continue current diet order Goal #1 PO intake to meet at least 75% energy and pro needs Anticipated Discharge Needs: None identified at this time Follow-Up By: 05/18/19 Additional Comments F/U: intakes, need for ONS
[2019-05-13] MEDS: SODIUM CHLORIDE 0.9% 1000 ML 1,000 ML IV SCH (06:25)
[2019-05-13] MEDS: ENOXAPARIN 40 MG/0.4 ML INJ SUB-Q SCH (10:39)
--- NOTE | 2019-05-13 10:48 | Discharge Summary ---
Providers - Providers Date of Admission: 05/11/19 06:10 Date of discharge: 05/13/19 Attending physician: YOLANDA CAMPOS 05/11/19 16:49 Consult to Mental Health [CONS] Routine Reason For Exam: Mood disorder. From [place] Primary care physician: SCHOOL RESOURCE OFFICER Hospitalization Reason for admission: AMS Condition: Stable Hospital course: The patient is a 39-year-old disabled female with history of Alcohol use disorder, MDD, diabetes, hypothyroidism who was transferred from [place] (a psychiatric hospital) for unwitnessed fall. She was agitated, combative, psychotic and required restraints and multiple PRN meds. The patient was admitted for alcohol withdrawal. The patient was placed under CIWA protocol. The patient eventually stabilized. Patient was also seen by psychiatry who felt that there was no indication for acute inpatient psychiatric hospitalization at this time. A 1013 was initially placed which was discontinued by psychiatry. Patient is felt to have received maximal hospital benefit and will be discharged home. Dedicated discharge time 35 minutes Disposition: DC-01 TO HOME OR SELFCARE Time spent for discharge: 35 - Discharge Diagnoses (1) Alcohol dependence Status: Acute (2) Alcohol withdrawal delirium Status: Acute (3) Diabetes Status: Acute Core Measure Documentation - Palliative Care Palliative Care/ Comfort Measures: Not Applicable - Core Measures Any of the following diagnoses?: none Exam - Constitutional Vitals: Temp Pulse Resp BP Pulse Ox 98.2 F 102 H 18 152/85 96 05/13/19 08:16 05/13/19 08:16 05/13/19 08:16 05/13/19 08:16 05/13/19 08:16 General appearance: Present: no acute distress, well-nourished - EENT Eyes: Present: PERRL ENT: hearing intact, clear oral mucosa - Neck Neck: Present: supple, normal ROM - Respiratory Respiratory effort: normal Respiratory: bilateral: CTA - Cardiovascular Heart Sounds: Present: S1 & S2. Absent: rub, click - Extremities Extremities: pulses symmetrical, No edema Peripheral Pulses: within normal limits - Abdominal General gastrointestinal: Present: soft, non-tender, non-distended, normal bowel sounds Female genitourinary: Present: normal - Integumentary Integumentary: Present: clear, warm, dry - Musculoskeletal Musculoskeletal: gait normal, strength equal bilaterally - Psychiatric Psychiatric: appropriate mood/affect, intact judgment & insight - Neurologic Neurologic: CNII-XII intact, moves all extremities Plan Activity: advance as tolerated Weight Bearing Status: Weight Bear as Tolerated Diet: diabetic
[2019-05-13 11:50] VITALS: BP 143/95
== END 2019-05-13 16:26 | disposition home or self-care (01) | DRG 897 ==
LOC: ED 00:14 → 4A 06:10
PROVIDERS: ADMIT Internal Medicine; ATTEND Hospitalist
DX: F10.231 Alcohol dependence with withdrawal delirium (principal); E03.9 Hypothyroidism, unspecified; E87.6 Hypokalemia; F39 Unspecified mood [affective] disorder; F32.9 Major depressive disorder, single episode, unspecified; E11.9 Type 2 diabetes mellitus without complications; Z90.49 Acquired absence of other specified parts of digestive tract; Z79.899 Other long term (current) drug therapy; Z88.8 Allergy status to other drugs, medicaments and biological substances; Y90.9 Presence of alcohol in blood, level not specified
CPT/HCPCS: 36415; 70450; 72125; 80048; 80053; 80307; 80320; 81001; 82550; 82962; 83735; 84439; 84443; 84703; 85025; 85610; 85730; 90715; G0378; G0480; J1650; J2060; J3411; J3475; J3480; J3486; J7030